=== PATIENT | female | born 1930 | race Caucasian/White ===

== ENCOUNTER 2018-07-04 16:42 | Inpatient (IN) | payer MEDICARE, OTHER ==
[~2018-07-04] VITALS: Ht 167.6 cm; Wt 68.9 kg
[~2018-07-04 16:42] MED LIST: ASCO500C7; ASPI-831; CALC300T34; CHOL100016; CYCL-117; D3/E1CAP; GABA400C14 PO; HYDR-3498 PO; HYDR-843; INSU100C3 SQ; LACT1TAB12 PO; LORA-441; METAMUCIL1 PK1; METF500T24 PO; MIRT-30 PO; MULT1TAB59; OMEG1CAP97 PO; OMEP20CA16 PO; SIMV20TA2 PO; [UNRECOGNIZED DRUG - CODE]
[2018-07-04] MEDS ORDERED: ACET-2047 PO (17:19)
[2018-07-04] MEDS ORDERED: FOLI-49 PO (17:19)
[2018-07-04] MEDS ORDERED: DULO60CA59 PO (17:20)
[2018-07-04] MEDS ORDERED: CRAN450T7 PO (17:20)
[2018-07-04] MEDS ORDERED: ASPI81TA52 PO (17:21)
[2018-07-04] MEDS ORDERED: ASCO500C7 PO (17:21)
[2018-07-04] MEDS ORDERED: ATOR10TA65 PO (17:21)
[2018-07-04] MEDS ORDERED: AMIN887L6 PO (17:22)
[2018-07-04] MEDS ORDERED: CRAN3875 PO (17:22)
[2018-07-04] MEDS ORDERED: MULT-542 PO (17:23)
[2018-07-04] MEDS ORDERED: HYDR-4011 PO (17:23)
[2018-07-04] MEDS ORDERED: MELA3TAB17 PO (17:24)
[2018-07-04] MEDS ORDERED: GABA-526 PO (17:25)
[2018-07-04] MEDS ORDERED: SOD CHLORIDE 0.9% 500 ML IV ONE (17:30)
[2018-07-04] MEDS ORDERED: VANCOMYCIN 1 GM (PMX) 250 ML IVPB ONE (18:30)
[2018-07-04] MEDS ORDERED: CEFTRIAXONE 1 GM/50 ML (PMX) 50 ML IVPB ONE (18:30)
[2018-07-04] MEDS ORDERED: AZTREONAM 2 GM in SOD CHLORIDE 0.9% 100 ML IVPB STA ×2 (18:57→22:38)
[2018-07-04] MEDS ORDERED: PROPOFOL 100 ML ONE (19:24)
[2018-07-04] MEDS ORDERED: NORepinephrine 8MG/250 ML (PMX 250 ML ONE (19:30)
[2018-07-04] MEDS: NORepinephrine 8MG/250 ML (PMX 250 ML IV SCH (19:35)
[2018-07-04] MEDS ORDERED: DEXTROSE 50% 50 ML SYRINGE ONE (20:00)
[2018-07-04] MEDS ORDERED: NA BICARBONATE 8.4% 50 ML SYG ONE (20:00)
[2018-07-04] MEDS ORDERED: CA CHLORIDE 10% 10 ML SYRINGE ONE (20:00)
[2018-07-04] MEDS ORDERED: AMIODARONE 150MG/D5W BOLUS 100 ML IV ONE (20:00)
[2018-07-04] MEDS ORDERED: AMIODARONE 150 MG INJ ONE (20:00)
[2018-07-04] MEDS ORDERED: EPINEPHrine 10 MCG/1ml (10 ML SYG) IV ONE (20:00)
[2018-07-04] MEDS ORDERED: PROPOFOL 100 ML IV ONE (20:00)
--- NOTE | 2018-07-04 20:38 | ERD ---
ER Documentation Chief Complaint Chief Complaint SENT BY DR AHMADI LEFT SIDE OF JAW FACE SWELLING HPI Is an 88-year-old female sent by primary care physician for left-sided possible facial cellulitis that she had some jaw swelling on the left side. Patient herself is demented and nonverbal at baseline and cannot provide any relevant medical history. History is per EMS when she halfway transfer sheet. ROS All systems reviewed and are negative except as per history of present illness. Medications Home Meds Reported Medications Gabapentin* (Gabapentin*) 600 Mg Tablet, 600 MG PO TID, #90 TAB 07/04/18 Melatonin (Melatonin) 3 Mg Tablet.sa, 6 MG PO HS, TAB.SA 07/04/18 Multivitamin* (Daily Value*) 1 Each Tablet, 1 TAB PO DAILY, TAB 07/04/18 Hydrocodone/Acetaminophen (Redrock 5-325 Tablet) 1 Each Tablet, 1 EACH PO Q8 PRN for PAIN LEVEL 1-3, TAB 07/04/18 Amino Acids/Protein Hydrolys (PRO-STAT AWC LIQUID) 887 Ml Liquid, 30 ML PO TID 07/04/18 Cran/Vitc/Mannose/Inulin/Brom (Uti-Stat Liquid) 3,875 Mg/30 Ml Liquid, 3875 MG PO DAILY 07/04/18 Ascorbic Acid* (Vitamin C*) 500 Mg Capsule.sa, 500 MG PO DAILY, CAP 07/04/18 Aspirin (Low Dose Aspirin) 81 Mg Tablet.dr, 81 MG PO DAILY, #30 TAB 07/04/18 Atorvastatin Calcium (Atorvastatin Calcium) 10 Mg Tablet, 5 MG PO QHS, #30 TAB 07/04/18 Cranberry Fruit (CRANBERRY) 450 Mg Tablet, 900 MG PO DAILY, TAB 07/04/18 Duloxetine Hcl* (Duloxetine Hcl*) 60 Mg Capsule.dr, 60 MG PO DAILY, #30 CAP 07/04/18 Folic Acid* (Folic Acid*) 1 Mg Tablet, 2 MG PO DAILY, TAB 07/04/18 Acetaminophen* (Acetaminophen*) 650 Mg Tablet, 650 MG PO Q6H PRN for PAIN AND OR ELEVATED TEMP, #30 TAB 07/04/18 Discontinued Reported Medications Insulin Aspart (Novolog) 100 U/Ml Cartridge, SQ PER SLIDING SCALE 12/14/12 Lorazepam* (Ativan*) 0.5 Mg Tablet, Q6H PRN 12/14/12 Mirtazapine* (Remeron*) 15 Mg Tab, 0.5 TAB PO QHS 12/14/12 Cyclobenzaprine Hcl (Flexeril) 10 Mg Tablet, TID 12/14/12 Hydroxyzine Hcl* (Hydroxyzine Hcl*) 25 Mg Tablet, TID PRN 12/14/12 Tolmetin Sodium (Tolmetin Sodium) 400 Mg Capsule, BID PRN 12/14/12 Calcium Carbonate (Tums EX) 1 Tab.chew Tab.chew 12/14/12 D3/E/Se/Soy Isofl/Tocoph/Lycop (PROSTATE 2.4 CAPSULE) 1 Each Capsule, BID 12/14/12 Psyllium Seed (Metamucil) 1 Pkt Packet, TID 12/14/12 Multivitamins* (Multivitamins*) 1 Tab Tablet, DAILY 12/14/12 Lactobacillus Acidophilus (Acidophilus) 1 Tab Tablet, 4 TAB PO DAILY 12/14/12 Ascorbic Acid* (Vitamin C*) 500 Mg Capsule.sa, DAILY 12/14/12 Hydrocodone Bit-Acetaminophen* (Redrock*) 1 Tab Tab, 2 TAB PO DAILY 12/14/12 Metformin Hcl* (Metformin Hcl*) 500 Mg Tablet, 1 TAB PO BID 12/14/12 Aspirin (Aspirin) 81 Mg Chew, DAILY 12/14/12 Cholecalciferol (Vitamin D3) 1,000 Unit Capsule, BID 12/14/12 Fish Oil/[place]-3 Fatty Acids (Fish Oil 1,000 Mg Capsule) 1 Cap Capsule, PO BID 12/14/12 Gabapentin* (Gabapentin*) 400 Mg Capsule, 2 CAP PO TID 12/14/12 Omeprazole* (Omeprazole*) 20 Mg Capsule.dr, PO DAILY 12/14/12 Simvastatin (Simvastatin) 20 Mg Tablet, PO QHS 12/14/12 Allergies Allergies: Coded Allergies: Penicillins (Verified Allergy, Unknown, 07/04/18) Sulfa (Sulfonamide Antibiotics) (Verified Allergy, Unknown, 07/04/18) chlorpromazine (Verified Allergy, Unknown, 07/04/18) PER CHART FROM [facility] ciprofloxacin (Verified Allergy, Unknown, 07/04/18) codeine (Verified Allergy, Unknown, 07/04/18) erythromycin base (Verified Allergy, Unknown, 07/04/18) PER CHART FROM [facility] lisinopril (Verified Allergy, Unknown, 07/04/18) PER CHART FROM [facility]. niacin (Verified Allergy, Unknown, 07/04/18) phenazopyridine HCl (Verified Allergy, Unknown, 07/04/18) PMhx/Soc Hx Neurological Disorder: Yes (peripheral neuropathy, fibromyalgia) Hx Cardiac Disorders: Yes (htn) Hx Miscellaneous Medical Probl: Yes (diabetes 2, gerd, mrsa, breast ca, obesity, left leg cellulitis, dermatitis) Hx Alcohol Use: No Hx Substance Use: No Hx Tobacco Use: No Physical Exam Vitals Vital Signs Date Temp Pulse Resp B/P (MAP) Pulse Ox O2 O2 Flow FiO2 Time Delivery Rate 07/04/18 76 16 100 100 19:45 07/04/18 97.9 86 17 99/65 (76) 98 Room Air 17:10 07/04/18 97.2 100 19 99/65 (76) 99 17:03 Physical Exam Const: No acute distress Head: Atraumatic Eyes: Normal Conjunctiva ENT: Normal External Ears, Nose and Mouth. Neck: Full range of motion. No meningismus. Resp: Clear to auscultation bilaterally Cardio: Regular rate and rhythm, no murmurs Abd: Soft, non tender, non distended. Normal bowel sounds Skin: Estimate induration noted on left jawline. No brawny induration. No crepitus Back: No midline or flank tenderness Ext: No cyanosis, or edema Neur: Awake and alert Psych: Normal Mood and Affect Result Diagram: 07/04/18 1717 07/04/18 1717 Results 24 hrs Laboratory Tests Test 07/04/18 17:17 White Blood Count 15.1 10^3/ul Red Blood Count 3.78 10^6/ul Hemoglobin 11.1 g/dl Hematocrit 36.0 % Mean Corpuscular Volume 95.2 fl Mean Corpuscular Hemoglobin 29.4 pg Mean Corpuscular Hemoglobin Concent 30.8 g/dl Red Cell Distribution Width 17.5 % Platelet Count 518 10^3/UL Mean Platelet Volume 11.3 fl Immature Granulocytes % 0.400 % Neutrophils % 77.7 % Lymphocytes % 12.0 % Monocytes % 8.0 % Eosinophils % 1.6 % Basophils % 0.3 % Nucleated Red Blood Cells % 0.0 /100WBC Immature Granulocytes # 0.060 10^3/ul Neutrophils # 11.7 10^3/ul Lymphocytes # 1.8 10^3/ul Monocytes # 1.2 10^3/ul Eosinophils # 0.2 10^3/ul Basophils # 0.1 10^3/ul Nucleated Red Blood Cells # 0.0 10^3/ul Urine Color YELLOW Urine Clarity TURBID Urine pH 5.0 Urine Specific [place] 1.018 Urine Ketones NEGATIVE mg/dL Urine Nitrite NEGATIVE mg/dL Urine Bilirubin NEGATIVE mg/dL Urine Urobilinogen NEGATIVE mg/dL Urine Leukocyte Esterase 3+ Natalia/ul Urine Microscopic RBC 44 /HPF Urine Microscopic WBC > 182 /HPF Urine Squamous Epithelial Cells MODERATE /HPF Urine Bacteria MODERATE /HPF Urine Mucus MODERATE /HPF Urine Yeast (Budding) FEW /HPF Urine Hemoglobin 1+ mg/dL Urine Glucose NEGATIVE mg/dL Urine Total Protein 2+ mg/dl Sodium Level 142 mmol/L Potassium Level 4.6 mmol/L Chloride Level 110 mmol/L Carbon Dioxide Level 27 mmol/L Anion Gap 5 Blood Urea Nitrogen 26 mg/dl Creatinine 0.76 mg/dl Est Glomerular Filtrat Rate mL/min mL/min Glucose Level 130 mg/dl Calcium Level 10.2 mg/dl Total Bilirubin 0.1 mg/dl Direct Bilirubin 0.00 mg/dl Indirect Bilirubin 0.1 mg/dl Aspartate Amino Transf (AST/SGOT) 22 IU/L Alanine Aminotransferase (ALT/SGPT) 8 IU/L Alkaline Phosphatase 165 IU/L Troponin I < 0.012 ng/ml Total Protein 7.4 g/dl Albumin 2.8 g/dl Globulin 4.60 g/dl Albumin/Globulin Ratio 0.60 Lipase 26 U/L Current Medications Medications Dose Sig/Chao Start Time Status Last (Trade) Ordered Route PRN Stop Time Admin Dose Reason Admin Sodium 500 ml @ Q1H ONCE 07/04/18 DC 07/04/18 Chloride 500 mls/hr IV 17:30 17:41 07/04/18 18:29 Ceftriaxone 50 ml @ ONCE ONCE 07/04/18 DC Sodium 100 mls/hr IVPB 18:30 07/04/18 18:59 Vancomycin 250 ml @ ONCE ONCE 07/04/18 DC 07/04/18 HCl 125 mls/hr IVPB 18:30 19:03 07/04/18 20:29 Aztreonam 2 100 ml @ ONCE STAT 07/04/18 DC gm/ Sodium 100 mls/hr IVPB 18:57 Chloride 07/04/18 19:56 Propofol 100 ml @ ud STK-MED 07/04/18 DC ONCE .ROUTE 19:24 07/04/18 19:25 250 ml @ ud STK-MED 07/04/18 DC Norepinephrin ONCE .ROUTE 19:30 e 07/04/18 19:31 Amiodarone 500 ml @ 0 Q0M IV 07/04/18 HCl 900 mls/hr 20:00 mg/Dextrose Amiodarone 100 ml @ ONCE ONCE 07/04/18 DC HCl 600 mls/hr IV 20:00 07/04/18 20:09 250 ml @ TITRATE IV 07/04/18 Norepinephrin 1.875 mls/ 20:00 e hr Propofol 100 ml @ 0 TITRATE 07/04/18 DC mls/hr ONCE IV 20:00 07/04/18 20:01 Procedures/MDM EKG: Rate/Rhythm: [Normal Sinus Rhythm] QRS, ST, T-waves: [No changes consistent w/ acute ischemia] Impression: [No evidence of ischemia or arrhythmia] Chest X-ray 1V Interpreted by me: Soft Tissue: No acute abnormalities Bones: No acute abnormalities Mediastinum/Cardiac Silhouette/Lungs: [No acute abnormalities] Medical decision making: This is a 88-year-old female with evidence of facial cellulitis. She also has evidence of urinary tract infection patient covered with antibiotics patient given fluids. Patient will be admitted to Dr. Bard zapata to medical surgical floor. Vital signs remained stable throughout. Departure Diagnosis: Primary Impression: Facial cellulitis Additional Impression: Urinary tract infection Urinary tract infection type: site unspecified Hematuria presence: without hematuria Qualified Codes: N39.0 - Urinary tract infection, site not specified Condition: Serious STALRA MCGREGORSurendra July 04, 2018 20:38
--- NOTE | 2018-07-04 20:49 | QN ---
Documentation Comment Patient became suddenly unresponsive. Upon arrival to the bedside, noted no pulse. ACLS started immediately. Patient had serial rounds of ACLS. We were able to revive the patient. On amiodarone drip for V. tach arrest. Intubated and central line placed. Started on levo fed Central Line Placement by me: Patient consented, sterilely draped, full prep, gown, glove, mask, time out performed. Anesthesia: 1% lidocaine locally Location: Left subclavian Device: Multiple lumen Technique: Seldinger technique. Secured with suture. Results: Venous return from all ports with easy saline flush. No complications. wire retrieved and disposed of. [Chest X-ray 1V Interpreted by me: Central line in SVC, Normal soft tissue, No evidence of pneumothorax.] Endotracheal Intubation by me: Pre assessment performed. See preceding note for details. Pre-oxygenation performed with 100% oxygen RSI: Performed w/o complication or hypoxic events. No meds as patient was apneic and unresponsive Blade: [Mac 4] ET Tube: 7.5 cm Depth: 22 cm at the lip Intubation confirmed by colorimetric CO2, equal breath sounds, quiet over the stomach. Chest X-ray 1V Interpreted by me: 2 cm above the delmi ET tube. Normal soft tissue, No pneumothorax. Critical Care: Time: 45 minutes, independent of any separately billable procedural time Treatments/Evaluations: Close monitoring and treatment of unstable vital signs, cardiorespiratory, and neurologic status, while maintaining tight balance of fluid, respiratory, and cardiac interventions. STARLA MCGREGOR July 04, 2018 20:48
[2018-07-04] MEDS ORDERED: FENTAnyl 50 MCG/ML VIAL IV ONE (21:00)
[2018-07-04] MEDS ORDERED: FENTAnyl (DRIP) 1000 mcg/100mL 100 ML IV SCH (21:00)
[2018-07-04] MEDS ORDERED: VASOPRESSIN 60 UNIT in SOD CHLORIDE 0.9% 57 ML IV STA (22:13)
[2018-07-04] MEDS: AMIODARONE 900 MG in DEXTROSE 5% 482 ML IV SCH ×2 (23:09→23:51)
[2018-07-05] VITALS (47 sets, daily range): BP systolic 75–155; BP diastolic 32–95; PULSE 0–85; RESP 13–28; Ht 167.6 cm; Wt 68.9 kg
[2018-07-05] MEDS ORDERED: PROPOFOL 100 ML IV SCH (02:30)
[2018-07-05] MEDS ORDERED: NORepinephrine 32 MG in DEXTROSE 5% 218 ML IV SCH (03:30)
[2018-07-05] MEDS ORDERED: EPINEPHrine 4 MG in DEXTROSE 5% 246 ML IV SCH (03:30)
[2018-07-05] MEDS ORDERED: VASOPRESSIN 60 UNIT in DEXTROSE 5% 57 ML IV SCH (03:30)
[2018-07-05] MEDS ORDERED: PHENYLephrine 80 MG in DEXTROSE 5% 242 ML IV SCH (03:30)
[2018-07-05] MEDS ORDERED: SOD CHLORIDE 0.9% 1,000 ML IV SCH (03:30)
[2018-07-05] MEDS ORDERED: GLUCAGON 1 MG INJ IM PRN (04:00)
[2018-07-05] MEDS ORDERED: GLUCOSE GEL 15 GRAM TUBE PO PRN ×2 (04:00)
[2018-07-05] MEDS ORDERED: FENTAnyl (DRIP) 1000 mcg/100mL 100 ML IV SCH (04:00)
[2018-07-05] MEDS ORDERED: GLUCOSE GEL 15 GRAM TUBE BUCCAL PRN (04:00)
[2018-07-05] MEDS ORDERED: DEXTROSE 50% 50 ML SYRINGE IV PRN ×2 (04:00)
[2018-07-05] MEDS: NORepinephrine 8MG/250 ML (PMX 250 ML IV SCH (04:27)
[2018-07-05] MEDS ORDERED: VANCOMYCIN IV PER PHARMACY XX SCH (04:30)
[2018-07-05] MEDS ORDERED: INSULIN ASPART [NOVOLOG] 3 ML PEN SC SCH (06:00)
[2018-07-05] MEDS ORDERED: EPINEPHRINE IV SCH (06:00)
[2018-07-05] MEDS ORDERED: PANTOPRAZOLE 40 MG INJ IV SCH (06:00)
[2018-07-05] MEDS ORDERED: PIPER-TAZO 3.375 GM IV (PMX) 100 ML IVPB SCH (06:00)
[2018-07-05] MEDS ORDERED: SOD CHLORIDE 0.9% IV SCH (06:00)
[2018-07-05] MEDS ORDERED: FAMOTIDINE 20 MG INJ IV SCH (09:00)
[2018-07-05] MEDS ORDERED: VANCOMYCIN 500 MG (PMX) 100 ML IVPB SCH (09:00)
[2018-07-05] MEDS ORDERED: ATROPINE 1 MG/10 ML SYRINGE ONE (09:55)
[2018-07-05] MEDS ORDERED: ATROPINE 1 MG INJ IV ONE (10:00)
[2018-07-05] MEDS ORDERED: DOPamine-D5W 1.6 MG/ML 250 ML IV SCH ×2 (10:00→10:30)
[2018-07-05] MEDS ORDERED: ATROPINE 1 MG/10 ML SYRINGE IV ONE (10:30)
--- NOTE | 2018-07-05 10:56 | RADRPT ---
Vent Rate: 38 bpm RR Interval: 1576 msec AK Interval: [id number] msec QRS Duration: 119 msec QT Interval: 517 msec QTC Interval: 412 msec P-R-T [place]: [id number] - 125 - 36 degrees Junctional rhythm...absent P waves, slow V-rate Incomplete right bundle branch block...QRSd >112, terminal axis(90,270) Low voltage, precordial leads...precordial leads <1.0mV Electronically Signed By: Jason Kirk
--- NOTE | 2018-07-05 11:45 | HP ---
Date/Time of Note Date/Time of Note DATE: 07/05/18 TIME: 11:33 Assessment/Plan VTE Prophylaxis Pharmacological prophylaxis: other Lines/Catheters IV Catheter Type (from Nrs): Peripheral IV Urinary Cath still in place: Yes Reason Cath still needed: urinary retention Assessment/Plan Assessment/Plan -Status post cardiac arrest * 2, requiring ordered oral intubation, ventilatory support pressors, antiarrhythmics and external pacing. -Severe sepsis, continue broad-spectrum antibiotics, follow-up on urine and blood cultures. -Diabetes mellitus type 2 with diabetic neuropathy -History of hypertension and hyperlipidemia -History of breast cancer, status post right mastectomy -Dementia Further recommendations based on clinical course. Plan of care discussed with Dr. Lr. Result Diagram: 07/05/18 0723 07/05/18 0723 Results 24hrs Laboratory Tests Test 07/04/18 17:17 07/04/18 20:53 07/05/18 04:06 07/05/18 05:55 White Blood 15.1 H Count Red Blood Count 3.78 L Hemoglobin 11.1 L Hematocrit 36.0 L Mean Corpuscular 95.2 Volume Mean Corpuscular 29.4 Hemoglobin Mean Corpuscular 30.8 L Hemoglobin Meera nt Red Cell 17.5 H Distribution Width Platelet Count 518 H Mean Platelet 11.3 H Volume Immature 0.400 Granulocytes % Neutrophils % 77.7 H Lymphocytes % 12.0 L Monocytes % 8.0 Eosinophils % 1.6 Basophils % 0.3 Nucleated Red 0.0 Blood Cells % Immature 0.060 H Granulocytes # Neutrophils # 11.7 H Lymphocytes # 1.8 Monocytes # 1.2 H Eosinophils # 0.2 Basophils # 0.1 Nucleated Red 0.0 Blood Cells # Urine Color YELLOW Urine Clarity TURBID A Urine pH 5.0 Urine Specific 1.018 [place] Urine Ketones NEGATIVE Urine Nitrite NEGATIVE Urine Bilirubin NEGATIVE Urine NEGATIVE Urobilinogen Urine Leukocyte 3+ H Esterase Urine 44 H Microscopic RBC Urine > 182 H Microscopic WBC Urine Squamous MODERATE Epithelial Cells Urine Bacteria MODERATE Urine Mucus MODERATE Urine Yeast FEW A (Budding) Urine Hemoglobin 1+ H Urine Glucose NEGATIVE Urine Total 2+ H Protein Sodium Level 142 Potassium Level 4.6 Chloride Level 110 Carbon Dioxide 27 Level Anion Gap 5 Blood Urea 26 H Nitrogen Creatinine 0.76 Est Glomerular Filtrat Rate mL/min Glucose Level 130 Calcium Level 10.2 Total Bilirubin 0.1 L Direct Bilirubin 0.00 Indirect 0.1 Bilirubin Aspartate Amino 22 Transf (AST/SGOT ) Alanine 8 L Aminotransferase (ALT/SGPT) Alkaline 165 H Phosphatase Troponin I < 0.012 Total Protein 7.4 Albumin 2.8 L Globulin 4.60 H Albumin/Globulin 0.60 Ratio Lipase 26 Blood Gas Blood arterial Specimen Source Arterial Blood 07/04/2018 9:10: Date Drawn 11 PM Arterial Blood 7.357 pH (Temp corrected) Arterial Blood 34.4 L pCO2 (Temp correct) Arterial Blood 317.3 H pO2 (Temp corrected) Arterial Blood 18.9 L HCO3 Arterial Blood -5.8 L Base Excess Arterial Blood 99.6 Oxygen Saturatio n [place] Test N/A Arterial Blood Right Brachial Gas Puncture Site Arterial 0.2 Blood Carboxyhem oglobin Arterial Blood 0.2 Methemoglobin Blood Gas A-a O2 361.3 H Differential Oxyhemoglobin 99.2 H Percent Blood Gas 37.0 Temperature Blood Gas 16.0 Respiration Rate Blood Gas Actual 17 Respiration Rate Blood Gas VENT - AC Modality FiO2 100.0 Blood Gas Tidal 500.0 Volume Blood Gas Low 5.0 PEEP Setting Blood Gas 24.0 Inspiratory Pressure Blood Gas KM Notified Whom Blood Gas 07/04/2018 9:22: Notified Time 54 PM Bedside Glucose 232 H 182 Test 07/05/18 07:00 07/05/18 07:23 Blood Gas Blood arterial Specimen Source Arterial Blood 07/05/2018 7:15: Date Drawn 17 AM Arterial Blood 7.237 *L pH (Temp corrected) Arterial Blood 31.2 L pCO2 (Temp correct) Arterial Blood 119.4 H pO2 (Temp corrected) Arterial Blood 13.0 L HCO3 Arterial Blood -13.2 L Base Excess Arterial Blood 97.7 Oxygen Saturatio n [place] Test ACCEPTAB Arterial Blood Left Radial Gas Puncture Site Arterial 0.3 Blood Carboxyhem oglobin Arterial Blood 0.1 Methemoglobin Blood Gas A-a O2 129.9 H Differential Oxyhemoglobin 97.3 Percent Blood Gas 37.0 Temperature Blood Gas 16.0 Respiration Rate Blood Gas Actual 17 Respiration Rate Blood Gas VENT - AC Modality FiO2 40.0 Blood Gas Tidal 500.0 Volume Blood Gas Low 5.0 PEEP Setting Blood Gas MNGO RN Critical Value Read Back Blood Gas TM Notified Whom Blood Gas 07/05/2018 7:24: Notified Time 01 AM White Blood 36.3 #H Count Red Blood Count 3.35 L Hemoglobin 9.9 L Hematocrit 33.8 L Mean Corpuscular 100.9 Volume Mean Corpuscular 29.6 Hemoglobin Mean Corpuscular 29.3 L Hemoglobin Meera nt Red Cell 17.9 H Distribution Width Platelet Count 397 # Mean Platelet 11.2 H Volume Immature 2.300 H Granulocytes % Neutrophils % Segmented 57 Neutrophils % (Manual) Band Neutrophils 26 H % (Manual) Lymphocytes % Lymphocytes % 9 L (Manual) Monocytes % Monocytes % 7 (Manual) Eosinophils % Eosinophils % 1 (Manual) Basophils % Nucleated Red 0.1 H Blood Cells % Immature 0.830 H Granulocytes # Neutrophils # Neutrophils # 24.1 H (Manual) Band Neutrophils 9.4 H # Lymphocytes 3.2 H (Manual) Lymphocytes # Monocytes # Monocytes # 2.5 H (Manual) Eosinophils # Basophils # Nucleated Red Blood Cells # Platelet NORMAL Estimate Giant Platelets 1 H Polychromasia 3+ Poikilocytosis 2+ Anisocytosis 1+ Macrocytosis 1+ Sodium Level 145 H Potassium Level 5.0 Chloride Level 114 H Carbon Dioxide 16 #L Level Anion Gap 15 #H Blood Urea 27 H Nitrogen Creatinine 1.21 H Est Glomerular Filtrat Rate mL/min Glucose Level 199 Lactic Acid 11.3 *H Level Calcium Level 10.3 H Phosphorus Level 6.0 H Magnesium Level 2.1 Total Bilirubin 0.1 L Direct Bilirubin 0.00 Indirect 0.1 Bilirubin Aspartate Amino 62 H Transf (AST/SGOT ) Alanine 20 Aminotransferase (ALT/SGPT) Alkaline 154 H Phosphatase Total Protein 6.1 # Albumin 2.4 L Globulin 3.70 H Albumin/Globulin 0.64 Ratio HPI/ROS Admit Date/Time Admit Date/Time July 04, 2018 at 19:35 Hx of Present Illness The patient is a 88-year-old female with extensive medical history including diabetes, hypertension, hyperlipidemia, osteoporosis, bilateral lower extremity contractures, major depressive disorder, fibromyalgia, bilateral hip osteoarthritis, dementia with behavioral disturbances. [facility] for facial cellulitis and possible urinary infection. Patient sustained cardiac arrest while in the emergency room was orally intubated, pressed on amiodarone drip for ventricular tachycardia as well as pressors for hemodynamic support, and external pacer. During examination patient is unresponsive and most of the history was obtained from medical records and talking to patient's niece Urmila at the bedside. Patient's niece Lorene's with the next of kin does not want any chest compression, chemical code only. PMH/Family/Social Past Medical History Medical History: diabetes, high cholesterol, hypertension Medications Current Medications Amiodarone HCl 900 mg/Dextrose 500 ml @ 0 mls/hr Q0M IV Last administered on 07/04/18at 23:51; Admin Dose 33.3 MLS/HR; Start 07/04/18 at 20:00 Propofol 100 ml @ 2.25 mls/hr Q12H IV ; Start 07/05/18 at 02:30 Vasopressin 60 unit/Dextrose 60 ml @ 0 mls/hr Q12H IV ; Start 07/05/18 at 03:30 Phenylephrine HCl 80 mg/Dextrose 250 ml @ 18.75 mls/ hr TITRATE IV ; Start 07/05/18 at 03:30 Norepinephrine 32 mg/Dextrose 250 ml @ 0.47 mls/hr TITRATE IV Last administered on 07/05/18at 09:57; Admin Dose 11.25 MLS/HR; Start 07/05/18 at 03:30 Sodium Chloride 1,000 ml @ 100 mls/hr Q10H IV Last administered on 07/05/18at 04:26; Admin Dose 100 MLS/HR; Start 07/05/18 at 03:30 Vancomycin HCl (Vanco Iv Per Pharmacy) VANCOMYCIN PER PHARMACY PER PROTOCOL XX ; Start 07/05/18 at 04:30 Piperacillin Sod/ Tazobactam Sod 100 ml @ 200 mls/hr Q6 IVPB Last administered on 07/05/18at 05:56; Admin Dose 200 MLS/HR; Start 07/05/18 at 06:00 Insulin Aspart (Novolog Insulin Pen) NOVOLOG *MILD* ALGORI... Q6 SC Last administered on 07/05/18at 05:57; Admin Dose 2 UNIT; Start 07/05/18 at 06:00 Fentanyl 100 ml @ 2.5 mls/hr TITRATE IV ; Start 07/05/18 at 04:00 Miscellaneous Information 1 ea NOTE XX ; Start 07/05/18 at 04:00 Glucose (Glutose) 15 gm Q15M PRN PO DECREASED GLUCOSE; Start 07/05/18 at 04:00 Glucose (Glutose) 22.5 gm Q15M PRN PO DECREASED GLUCOSE; Start 07/05/18 at 04:00 Dextrose (D50w Syringe) 25 ml Q15M PRN IV DECREASED GLUCOSE; Start 07/05/18 at 04:00 Dextrose (D50w Syringe) 50 ml Q15M PRN IV DECREASED GLUCOSE; Start 07/05/18 at 04:00 Glucagon (Glucagen) 1 mg Q15M PRN IM DECREASED GLUCOSE; Start 07/05/18 at 04:00 Glucose (Glutose) 15 gm Q15M PRN BUCCAL DECREASED GLUCOSE; Start 07/05/18 at 04:00 Famotidine (Pepcid Iv) 20 mg DAILY IV Last administered on 07/05/18at 08:41; Admin Dose 20 MG; Start 07/05/18 at 09:00 Epinephrine 4 mg/ Sodium Chloride 254 ml @ 3.81 mls/hr TITRATE IV ; Start 07/05/18 at 06:00 Vancomycin HCl 100 ml @ 100 mls/hr ONCE IVPB Last administered on 07/05/18at 08:41; Admin Dose 100 MLS/HR; Start 07/05/18 at 09:00; Stop 07/05/18 at 15:00 Vancomycin HCl 250 ml @ 125 mls/hr Q24H IVPB ; Start 07/06/18 at 09:00 Dopamine HCl/ Dextrose 250 ml @ 5.168 mls/ hr TITRATE IV Last administered on 07/05/18at 10:55; Admin Dose 7.751 MLS/HR; Start 07/05/18 at 10:30 Coded Allergies: Penicillins (Verified Allergy, Unknown, 07/04/18) Sulfa (Sulfonamide Antibiotics) (Verified Allergy, Unknown, 07/04/18) chlorpromazine (Verified Allergy, Unknown, 07/04/18) PER CHART FROM [facility] ciprofloxacin (Verified Allergy, Unknown, 07/04/18) codeine (Verified Allergy, Unknown, 07/04/18) erythromycin base (Verified Allergy, Unknown, 07/04/18) PER CHART FROM [facility] lisinopril (Verified Allergy, Unknown, 07/04/18) PER CHART FROM [facility]. niacin (Verified Allergy, Unknown, 07/04/18) phenazopyridine HCl (Verified Allergy, Unknown, 07/04/18) Past Surgical History Past Surgical Hx: other (Status post breast right mastectomy and axillary dissection for right breast cancer, status post cholecystectomy, status post hip replacement) Social History Smoking Status: Unknown if ever smoked Exam/Review of Systems Vital Signs Vitals Vital Signs Date Temp Pulse Resp B/P (MAP) Pulse Ox O2 O2 Flow FiO2 Time Delivery Rate 07/05/18 29 10:44 07/05/18 17 06:45 07/05/18 86/72 (77) 06:30 07/05/18 100 05:45 07/05/18 Mechanical 05:00 Ventilator 07/05/18 50 04:53 07/05/18 98.7 04:00 Intake and Output 07/04/18 07/04/18 07/05/18 1515:00 23:00 07:00 IntakeIntake Total 500 ml 646.90 ml OutputOutput Total 60 ml BalanceBalance 500 ml 586.90 ml Exam Constitutional: frail, other (Unresponsive, orally intubated) Neck: supple Respiratory: diminished breath sounds Cardiovascular: other (Paced rhythm) Gastrointestinal: soft, non-tender Musculoskeletal: nl extremities to inspection Extremities: normal pulses Neurological: unresponsive Skin: other ZARI GÓMEZ July 05, 2018 11:43
[2018-07-05] MEDS ORDERED: VANCOMYCIN HCL 1.5 GM in SOD CHLORIDE 0.9% 250 ML IVPB SCH (12:00)
--- NOTE | 2018-07-05 12:56 | DES ---
Date/Time of Note Date/Time of Note DATE: 07/05/18 TIME: 12:50 Discharge/ Summary Admission/Discharge Info Admit Date/Time July 04, 2018 at 19:35 Date/Time July 05, 2018 at 12: 05 PM Preliminary Cause of Cardiopulmonary arrest Called to pronounce the patient. Patient found unresponsive does not have respiration, pulse or blood pressure. [place] on telemetry, off ventilatory support, no breath sounds or heart sounds patient pronounced at 12:05 PM. Admit History The patient is a 88-year-old female with extensive medical history including diabetes, hypertension, hyperlipidemia, osteoporosis, bilateral lower extremity contractures, major depressive disorder, fibromyalgia, bilateral hip osteoarthritis, dementia with behavioral disturbances. Patient was sent from [facility] for facial cellulitis and possible urinary infection. Patient sustained cardiac arrest while in the emergency room was orally intubated, pressed on amiodarone drip for ventricular tachycardia as well as pressors for hemodynamic support, and external pacer. During examination patient is unresponsive and most of the history was obtained from medical records and talking to patient's niece Urmila at the bedside. Patient's niece Lorene's with the next of kin does not want any chest compression, chemical code only. Pending Labs/Cultures Laboratory Tests Test 07/04/18 17:17 07/04/18 20:53 07/05/18 04:06 07/05/18 05:55 White Blood 15.1 Count 10^3/ul (4.8-10 .8) Red Blood 3.78 Count 10^6/ul (4.20-5 .40) Hemoglobin 11.1 g/dl (12.0-16.0 ) Hematocrit 36.0 % (37.0-47.0) Mean 95.2 Corpuscular fl (82.0-101.0) Volume Mean 29.4 Corpuscular pg (29.0-33.0) Hemoglobin Mean 30.8 Corpuscular g/dl (32.0-37.0 Hemoglobin Conc ) ent Red Cell 17.5 Distribution % (11.5-14.5) Width Platelet Count 518 10^3/UL (140-41 5) Mean Platelet 11.3 Volume fl (7.4-10.4) Immature 0.400 Granulocytes % % (0.001-0.429) Neutrophils % 77.7 % (39.0-77.0) Lymphocytes % 12.0 % (15.0-51.0) Monocytes % 8.0 % (0.0-11.0) Eosinophils % 1.6 % (0.0-7.0) Basophils % 0.3 % (0.0-2.0) Nucleated Red 0.0 Blood Cells % /100WBC (0.0-0. 0) Immature 0.060 Granulocytes # 10^3/ul (0.0-0. 031) Neutrophils # 11.7 10^3/ul (1.6-7. 5) Lymphocytes # 1.8 10^3/ul (0.8-2. 9) Monocytes # 1.2 10^3/ul (0.3-0. 9) Eosinophils # 0.2 10^3/ul (0.0-0. 5) Basophils # 0.1 10^3/ul (0.0-0. 1) Nucleated Red 0.0 Blood Cells # 10^3/ul (0.0-0. 0) Urine Color YELLOW (YELLOW) Urine Clarity TURBID (CLEAR) Urine pH 5.0 (5.0-9.0) Urine Specific 1.018 (1.003-1. [place] 030) Urine Ketones NEGATIVE mg/dL (NEGATIVE ) Urine Nitrite NEGATIVE mg/dL (NEGATIVE ) Urine NEGATIVE Bilirubin mg/dL (NEGATIVE ) Urine NEGATIVE Urobilinogen mg/dL (NEGATIVE ) Urine Leukocyte 3+ Esterase Natalia/ul (NEGATIV E) Urine 44 /HPF (0-5) Microscopic RBC Urine > 182 Microscopic /HPF (0-5) WBC Urine Squamous MODERATE Epithelial Cell /HPF (FEW) s Urine Bacteria MODERATE /HPF (NONE SEEN) Urine Mucus MODERATE /HPF (NONE SEEN) Urine Yeast FEW /HPF (Budding) (NONE SEEN) Urine 1+ Hemoglobin mg/dL (NEGATIVE ) Urine Glucose NEGATIVE mg/dL (NEGATIVE ) Urine Total 2+ Protein mg/dl (NEGATIVE ) Sodium Level 142 mmol/L (135-144 ) Potassium 4.6 Level mmol/L (3.5-5.1 ) Chloride Level 110 mmol/L (97-110) Carbon Dioxide 27 Level mmol/L (21-31) Anion Gap 5 (5-13) Blood Urea 26 mg/dl (7-20) Nitrogen Creatinine 0.76 mg/dl (0.44-1.0 0) Est Glomerular mL/min (>60) Filtrat Rate mL/min Glucose Level 130 mg/dl (70-220) Calcium Level 10.2 mg/dl (8.4-10.2 ) Total 0.1 Bilirubin mg/dl (0.2-1.3) Direct 0.00 Bilirubin mg/dl (0.00-0.2 0) Indirect 0.1 Bilirubin mg/dl (0-1.1) Aspartate Amino 22 IU/L (15-46) Transf (AST/SGO T) Alanine 8 IU/L (13-69) Aminotransferas e (ALT/SGPT) Alkaline 165 Phosphatase IU/L (42-121) Troponin I < 0.012 ng/ml (0.000-0. 120) Total Protein 7.4 g/dl (6.1-8.1) Albumin 2.8 g/dl (3.3-4.9) Globulin 4.60 g/dl (1.3-3.2) Albumin/Globuli 0.60 n Ratio Lipase 26 U/L (23-300) Blood Gas Blood arterial Specimen Source Arterial Blood 07/04/2018 9:10 Date Drawn :11 PM Arterial Blood 7.357 (7.350-7 pH .450) (Temp corrected ) Arterial Blood 34.4 pCO2 mmhg (35-45) (Temp correct) Arterial Blood 317.3 pO2 mmHG (80-90.0) (Temp corrected ) Arterial Blood 18.9 HCO3 mmol/L (22.0-2 6.0) Arterial Blood -5.8 Base Excess mmol/L (-3.0-3 ) Arterial Blood 99.6 Oxygen Saturati mmHG (95.0-100 on .0) [place] Test N/A Arterial Blood Right Brachial Gas Puncture Site Arterial 0.2 Blood Carboxyhe % (0.0-3.0) moglobin Arterial Blood 0.2 Methemoglobin % (0.0-1.5) Blood Gas A-a 361.3 O2 mmHg (7.0-24.0 Differential ) Oxyhemoglobin 99.2 Percent % (93.0-99.0) Blood Gas 37.0 C Temperature Blood Gas 16.0 Respiration Rate Blood Gas 17 Actual Respiration Rat e Blood Gas VENT - AC Modality FiO2 100.0 % Blood Gas Tidal 500.0 mL Volume Blood Gas Low 5.0 cmH2O PEEP Setting Blood Gas 24.0 Inspiratory Pressure Blood Gas KM Notified Whom Blood Gas 07/04/2018 9:22 Notified Time :54 PM Bedside 232 182 Glucose mg/dL (70-220) mg/dL (70-220) Test 07/05/18 07:00 07/05/18 07:23 Blood Gas Blood arterial Specimen Source Arterial Blood 07/05/2018 7:15: Date Drawn 17 AM Arterial Blood 7.237 (7.350-7. pH 450) (Temp corrected ) Arterial Blood 31.2 pCO2 mmhg (35-45) (Temp correct) Arterial Blood 119.4 pO2 mmHG (80-90.0) (Temp corrected ) Arterial Blood 13.0 HCO3 mmol/L (22.0-26 .0) Arterial Blood -13.2 Base Excess mmol/L (-3.0-3) Arterial Blood 97.7 Oxygen Saturati mmHG (95.0-100. on 0) [place] Test ACCEPTAB Arterial Blood Left Radial Gas Puncture Site Arterial 0.3 % (0.0-3.0) Blood Carboxyhe moglobin Arterial Blood 0.1 % (0.0-1.5) Methemoglobin Blood Gas A-a 129.9 O2 mmHg (7.0-24.0) Differential Oxyhemoglobin 97.3 Percent % (93.0-99.0) Blood Gas 37.0 C Temperature Blood Gas 16.0 Respiration Rate Blood Gas 17 Actual Respiration Rat e Blood Gas VENT - AC Modality FiO2 40.0 % Blood Gas Tidal 500.0 mL Volume Blood Gas Low 5.0 cmH2O PEEP Setting Blood Gas MNGO RN Critical Value Read Back Blood Gas TM Notified Whom Blood Gas 07/05/2018 7:24: Notified Time 01 AM White Blood 36.3 Count 10^3/ul (4.8-1 0.8) Red Blood 3.35 Count 10^6/ul (4.20- 5.40) Hemoglobin 9.9 g/dl (12.0-16. 0) Hematocrit 33.8 % (37.0-47.0) Mean 100.9 Corpuscular fl (82.0-101.0 Volume ) Mean 29.6 Corpuscular pg (29.0-33.0) Hemoglobin Mean 29.3 Corpuscular g/dl (32.0-37. Hemoglobin Conc 0) ent Red Cell 17.9 Distribution % (11.5-14.5) Width Platelet Count 397 10^3/UL (140-4 15) Mean Platelet 11.2 Volume fl (7.4-10.4) Immature 2.300 Granulocytes % % (0.001-0.429 ) Neutrophils % % (39.0-77.0) Segmented 57 % (39-77) Neutrophils % (Manual) Band 26 % (0-4) Neutrophils % (Manual) Lymphocytes % % (15.0-51.0) Lymphocytes % 9 % (15-51) (Manual) Monocytes % % (0.0-11.0) Monocytes % 7 % (0-11) (Manual) Eosinophils % % (0.0-7.0) Eosinophils % 1 % (0-7) (Manual) Basophils % % (0.0-2.0) Nucleated Red 0.1 Blood Cells % /100WBC (0.0-0 .0) Immature 0.830 Granulocytes # 10^3/ul (0.0-0 .031) Neutrophils # 10^3/ul (1.6-7 .5) Neutrophils # 24.1 (Manual) 10^3/ul (1.6-7 .5) Band 9.4 Neutrophils # 10^3/ul (0.0-0 .6) Lymphocytes 3.2 (Manual) 10^3/ul (0.8-2 .9) Lymphocytes # 10^3/ul (0.8-2 .9) Monocytes # 10^3/ul (0.3-0 .9) Monocytes # 2.5 (Manual) 10^3/ul (0.3-0 .9) Eosinophils # 10^3/ul (0.0-0 .5) Basophils # 10^3/ul (0.0-0 .1) Nucleated Red 10^3/ul (0.0-0 Blood Cells # .0) Platelet NORMAL Estimate Giant Platelets 1 % (0-0) Polychromasia 3+ (0-0) Poikilocytosis 2+ (0-0) Anisocytosis 1+ (0-0) Macrocytosis 1+ (0-0) Sodium Level 145 mmol/L (135-14 4) Potassium 5.0 Level mmol/L (3.5-5. 1) Chloride Level 114 mmol/L (97-110 ) Carbon Dioxide 16 Level mmol/L (21-31) Anion Gap 15 (5-13) Blood Urea 27 Nitrogen mg/dl (7-20) Creatinine 1.21 mg/dl (0.44-1. 00) Est Glomerular mL/min (>60) Filtrat Rate mL/min Glucose Level 199 mg/dl (70-220) Lactic Acid 11.3 Level mmol/L (0.5-2. 0) Calcium Level 10.3 mg/dl (8.4-10. 2) Phosphorus 6.0 Level mg/dl (2.5-4.9 ) Magnesium 2.1 Level mg/dl (1.7-2.5 ) Total 0.1 Bilirubin mg/dl (0.2-1.3 ) Direct 0.00 Bilirubin mg/dl (0.00-0. 20) Indirect 0.1 Bilirubin mg/dl (0-1.1) Aspartate Amino 62 Transf (AST/SGO IU/L (15-46) T) Alanine 20 Aminotransferas IU/L (13-69) e (ALT/SGPT) Alkaline 154 Phosphatase IU/L (42-121) Total Protein 6.1 g/dl (6.1-8.1) Albumin 2.4 g/dl (3.3-4.9) Globulin 3.70 g/dl (1.3-3.2) Albumin/Globuli 0.64 n Ratio ZARI GÓMEZ July 05, 2018 12:56
[2018-07-06] MEDS ORDERED: VANCOMYCIN 1 GM 250 ML IVPB SCH (09:00)
== END 2018-07-05 12:05 | disposition expired | DRG 872 ==
LOC: E/R 16:42 → ICU 19:35 → EDBEDREQSVC 21:01 → EDBEDREQ 21:01
PROVIDERS: ADMIT Internal Medicine; ATTEND Internal Medicine
PROC: 0BH17EZ Insertion of Endotracheal Airway into Trachea, Via Natural or Artificial Opening (ICD-10-PCS; principal; 2018-07-04)
PROC: 5A1935Z Respiratory Ventilation, Less than 24 Consecutive Hours (ICD-10-PCS; 2018-07-04)
PROC: 4A133R1 Monitoring of Arterial Saturation, Peripheral, Percutaneous Approach (ICD-10-PCS; 2018-07-04)
PROC: 05H633Z Insertion of Infusion Device into Left Subclavian Vein, Percutaneous Approach (ICD-10-PCS; 2018-07-04)
DX: A41.9 Sepsis, unspecified organism (principal); N39.0 Urinary tract infection, site not specified; L03.211 Cellulitis of face; F03.91 Unspecified dementia, unspecified severity, with behavioral disturbance; I47.2 Ventricular tachycardia; R65.20 Severe sepsis without septic shock; Z66 Do not resuscitate; I46.9 Cardiac arrest, cause unspecified; I10 Essential (primary) hypertension; E11.42 Type 2 diabetes mellitus with diabetic polyneuropathy; E78.5 Hyperlipidemia, unspecified; Z86.14 Personal history of Methicillin resistant Staphylococcus aureus infection; Z85.3 Personal history of malignant neoplasm of breast; Z90.11 Acquired absence of right breast and nipple; M81.0 Age-related osteoporosis without current pathological fracture; Z79.82 Long term (current) use of aspirin; Z88.0 Allergy status to penicillin; Z88.2 Allergy status to sulfonamides
CPT/HCPCS: 31500; 36415; 36600; 71045; 80053; 81001; 82803; 82962; 83605; 83690; 83735; 84100; 84484; 85025; 87081; 92950; 93005; 94002; 94003; 94770; J0171; J0282; J0461; J1265; J1815; J2543; J3010; J3370; J7030; J7040; J7050; J7060; J7070